=== PATIENT | female | born 1965 | race Caucasian/White ===

== ENCOUNTER 2019-05-06 15:06 | Emergency (ER) | payer OTHER ==
[2019-05-06 15:25] VITALS: BP 118/89
[2019-05-06 15:54] LABS: Influenza A Molecular Negative (Negative); Influenza B Molecular Negative (Negative)
--- NOTE | 2019-05-06 16:03 | UC ---
FLU HPI - HPI Summary HPI Summary: started feeling ill yesterday with fatigue, chills, ST, GI upset, a bit better better today, did have flu vacc - History of Current Complaint Chief Complaint: UCRespiratory Stated Complaint: FLU SYMPTOMS Time Seen by Provider: 05/06/19 15:27 Hx Obtained From: Patient ?: No Onset/Duration: Sudden Onset Severity Currently: None Severity Initially: Mild Pain Intensity: 0 Associated Signs & Symptoms: Positive: Sore Throat, Nasal Congestion, Diarrhea - Allergy/Home Medications Allergies/Adverse Reactions: Allergies Allergy/AdvReac Type Severity Reaction Status Date / Time No Known Allergies Allergy Verified 05/06/19 15:26 Home Medications: Home Medications Multivit with Calcium,Iron,Min [Multiple Vitamins For Women] 1 tab PO DAILY [History Confirmed 05/06/19] PMH/Surg Hx/FS Hx/Imm Hx Previously Healthy: Yes - Surgical History Surgical History: Yes Surgery Procedure, Year, and Place: Right knee replacement 2017 - Family History Known Family History: Positive: None - Social History Occupation: Employed Full-time Lives: Alone Alcohol Use: Occasionally Substance Use Type: None Smoking Status (MU): Never Smoked Tobacco Review of Systems All Other Systems Reviewed And Are Negative: Yes Constitutional: Positive: Fatigue Skin: Positive: Negative ENT: Positive: Sore Throat, Sinus Congestion Respiratory: Positive: Negative Gastrointestinal: Positive: Diarrhea Musculoskeletal: Positive: Negative Neurological/Mental Status: Positive: Negative Psychological: Positive: Negative Is Patient Immunocompromised?: No Physical Exam Triage Information Reviewed: Yes Appearance: Well-Appearing, No Pain Distress, Well-Nourished Vital Signs: Initial Vital Signs Temp 98.8 F 05/06/19 15:21 Pulse 71 05/06/19 15:21 Resp 12 05/06/19 15:21 BP 118/89 05/06/19 15:21 Pulse Ox 100 05/06/19 15:21 Vital Signs Reviewed: Yes ENT: Positive: Pharynx normal, Nasal congestion, TMs normal Neck exam: Normal Respiratory Exam: Normal Respiratory: Positive: Lungs clear Cardiovascular Exam: Normal Cardiovascular: Positive: RRR Abdominal Exam: Normal Neurological Exam: Normal Neurological: Positive: Alert Psychological Exam: Normal Skin Exam: Normal Skin: Negative: Rashes Flu Course/Dx - Differential Dx/Diagnosis Differential Diagnosis/HQI/PQRI: Influenza, Upper Respiratory Infection Provider Diagnosis: Respiratory infection Discharge ED - Sign-Out/Discharge Documenting (check all that apply): Patient Departure All imaging exams completed and their final reports reviewed: No Studies - Discharge Plan Condition: Good Disposition: HOME Patient Education Materials: Upper Respiratory Infection (ED) Referrals: No Primary Care Phys,NOPCP [Primary Care Provider] - Additional Instructions: drink plenty of fluids and rest use Tylenol as directed for fever and pain return of your symptoms worsen - Billing Disposition and Condition Condition: GOOD Disposition: Home
== END 2019-05-06 16:20 | disposition home or self-care (01) ==
LOC: UCEAST 15:06
DX: J98.8 Other specified respiratory disorders (principal); R19.7 Diarrhea, unspecified
CPT/HCPCS: 99201; G0463

== ENCOUNTER 2019-12-04 09:47 | Observation (INO) ==
[2019-12-04] MEDS ORDERED: NS 0.9% 1000 ml BAG 1,000 ML IV ONE (10:10)
[2019-12-04 10:39] LABS: ABS Eosinophils 0.1 10^3/ul (0-0.6); ABS Monocytes 0.4 10^3/ul (0-0.8); ABS Neutrophils 2.3 10^3/ul (1.5-7.7); Eosinophil % 1.7 %; Hematocrit 34 % (35-47); Hemoglobin 11.6 g/dL (12.0-16.0); Lymphocyte % 26.3 %; Mean Corpuscular HGB Conc 34 g/dL (31-36); Mean Corpuscular Hemoglobin 30 pg (27-31); Mean Corpuscular Volume 88 fL (80-97); Mean Platelet Volume 8.2 fL (7.4-10.4); Platelet Count 212 10^3/uL (150-450); Red Cell Distribution Width 14 % (10-15); White Blood Count 3.8 10^3/uL (3.5-10.8)
[2019-12-04 10:43] LABS: Activated Partial Thrombo Time 31.7 seconds (26.0-38.0); INR 0.97 (0.82-1.09)
[2019-12-04 10:51] LABS: Albumin 4.5 g/dL (3.2-5.2); Albumin/Globulin Ratio 1.9 (1-3); BUN/Creatinine Ratio 16.5 (8-20); Calcium 9.7 mg/dL (8.6-10.3); EGFR African American 92.5 (>60); EGFR Non-African American 76.4 (>60); Globulin 2.4 g/dL (2-4); HDL Cholesterol 63.9 mg/dL; Potassium 3.9 mmol/L (3.5-5.0); Total Bilirubin 0.5 mg/dL (0.2-1.0); Total Protein 6.9 g/dL (6.4-8.9)
[2019-12-04 11:43] LABS: Urine Appearance Clear; Urine Bilirubin Negative (Negative); Urine Blood Negative (Negative); Urine Color Straw; Urine Glucose Negative (Negative); Urine Ketones Negative (Negative); Urine Nitrite Negative (Negative); Urine Protein Negative (Negative); Urine Specific Gravity 1.002 (1.010-1.030); Urine Urobilinogen Negative (Negative)
[2019-12-04 12:01] LABS: Urine Bacteria 1+ (Absent); Urine Red Blood Cell Trace(0-2/hpf) (Absent); Urine Squamous Epithelial Cell Present (Absent); Urine White Blood Cell Trace(0-5/hpf) (Absent)
[2019-12-04 13:56] LABS: HIV 4th Generation Nonreactive (Nonreactive)
[2019-12-04 14:34] LABS: TSH Ultra Thyroid Stim Horm 2.93 mcIU/mL (0.34-5.60)
[2019-12-04 17:06] VITALS: BP 131/71
== END 2019-12-04 18:00 | disposition home or self-care (01) ==
LOC: ED 09:47 → MEDTELE 09:47
PROVIDERS: ADMIT Hospitalist; ATTEND Hospitalist